=== PATIENT | female | born 1945 | race Two or more races ===

== ENCOUNTER 2023-10-28 09:41 | Inpatient (IN) | payer MEDICARE ==
[~2023-10-28] VITALS: Ht 157.5 cm; Wt 83.9 kg
[2023-10-28] MEDS ORDERED: MECLIZINE HCL 25 MG TABLET ONE (10:26)
[2023-10-28 10:33] LABS: BASOPHILS # (AUTO) 0.1 K/uL (0.0-0.2); BASOPHILS % (AUTO) 0.6 % (0.0-2.0); EOSINOPHILS # (AUTO) 0.6 K/uL (0.0-0.7); HEMATOCRIT 35 % (33-45); HEMOGLOBIN 11.8 g/dL (11.5-14.8); LYMPHOCYTES # (AUTO) 1.6 K/uL (0.8-4.8); LYMPHOCYTES % (AUTO) 20.5 % (20.0-44.0); MEAN CORPUSCULAR HEMOGLOBIN 29 PG (26.0-33.0); MEAN CORPUSCULAR HGB CONC 34 g/dl (31.0-36.0); MEAN CORPUSCULAR VOLUME 87 fL (82-100); MONOCYTES # (AUTO) 0.7 K/uL (0.1-1.30); NEUTROPHILS % (AUTO) 62.9 % (43.0-81.0); PLATELET COUNT (AUTO) 303 K/uL (150-450); RED BLOOD CELL COUNT(AUTO) 4.01 MIL/uL (4.0-5.2); RED CELL DISTRIBUTION WIDTH 13.6 % (11.5-15.0)
[2023-10-28] MEDS: MECLIZINE HCL 25 MG TABLET PO ONE (10:41)
[2023-10-28 10:44] LABS: SERUM AMMONIA 8 umol/L (11-32)
[2023-10-28 11:36] LABS: CALCIUM, SERUM 8.8 mg/dL (8.5-10.1); CARBON DIOXIDE 27 mmol/L (21-32); CHLORIDE 97 mmol/L (98-107); GLUCOSE 124 mg/dL (74-106); POTASSIUM 4.7 mmol/L (3.5-5.1); SODIUM SERUM 128 mmol/L (136-145); UREA NITROGEN, BLOOD 23 mg/dL (7-18)
[2023-10-28 11:48] LABS: ALANINE AMINOTRANSFERASE 22 U/L (12-78); ALKALINE PHOSPHATASE 101 U/L (46-116); ASPARTATE AMINOTRANSFERASE 15 U/L (15-37); BILIRUBIN,DIRECT 0.2 mg/dL (0.0-0.2); BILIRUBIN,TOTAL 0.5 mg/dL (0.2-1.0); NT-PRO BNP 391 pg/mL (0-125); TOTAL PROTEIN, SERUM 6.9 g/dL (6.4-8.2)
[2023-10-28 11:57] LABS: ALBUMIN 3.1 g/dL (3.4-5.0); LIPASE 76 U/L (16-77)
[2023-10-28] MEDS: IV NS 0.9% 1,000 ML BAG IV ONE (12:23)
[2023-10-28 12:52] LABS: APPEARANCE,URINE Slightly Cloudy (CLEAR); BILIRUBIN,URINE Negative (NEGATIVE); BLOOD, URINE Negative Ery/uL (NEGATIVE); COLOR,URINE YELLOW (YELLOW); KETONES,URINE Negative (NEGATIVE); LEUKOCYTE ESTERASE ,URINE Small (NEGATIVE); NITRITE, URINE Positive (NEGATIVE); PROTEIN,URINE Negative (NEGATIVE); UGLUCOSE Negative (NEGATIVE); UROBILINOGEN,URINE 0.2 EU/dL (0.2)
[2023-10-28 13:02] LABS: ADD URINE CULTURE YES; BACTERIA,URINE Many /HPF (None Seen); RBC,URINE 0-2 /HPF (0-2); WBC,URINE 21-50 /HPF (0-3)
[2023-10-28] MEDS ORDERED: ABAT125A SQ (14:47)
[2023-10-28] MEDS ORDERED: PRED-272 PO (14:47)
[2023-10-28] MEDS ORDERED: CITA20TA16 PO (14:47)
[2023-10-28] MEDS ORDERED: ALEN70TA80 PO (14:47)
[2023-10-28] MEDS ORDERED: HYDR200T4 PO (14:47)
[2023-10-28] MEDS ORDERED: LEVE500T20 PO (14:47)
[2023-10-28] MEDS ORDERED: ZOLP5TAB8 PO (14:47)
[2023-10-28] MEDS ORDERED: OMEP40CA21 PO (14:47)
[2023-10-28] MEDS ORDERED: HYDR12.55 PO (14:47)
[2023-10-28] MEDS ORDERED: LISI10TA29 PO (14:47)
[2023-10-28] MEDS ORDERED: ATEN50TA PO (14:47)
[2023-10-28] MEDS ORDERED: ATOR20TA PO (14:47)
[2023-10-28 15:00] VITALS: BP_SYST 138; BP_SYST 140; BP_SYST 141; BP_DIAS 57; BP_DIAS 60; BP_DIAS 62
[2023-10-28] MEDS ORDERED: ACETAMINOPHEN 325 MG TABLET PO PRN (15:00)
[2023-10-28] MEDS ORDERED: MAG HYDROX/AL HYDROX/SIMETH 30 ML UDC PO PRN (15:00)
[2023-10-28] MEDS ORDERED: MAGNESIUM HYDROXIDE 30 ML UDC PO PRN (15:00)
[2023-10-28] MEDS ORDERED: ONDANSETRON HCL/PF 4 MG/2 ML VIAL IVP PRN (15:00)
[2023-10-28] MEDS ORDERED: Z GUARD REMEDY 4 OZ OINT TP PRN (15:00)
[2023-10-28] MEDS ORDERED: HYDROCODONE/APAP 5/325MG TABLET PO PRN (15:00)
[2023-10-28] MEDS: IV 1/2NS 1000 ML 1,000 ML IV PRN (15:07)
[2023-10-28 16:00] VITALS: BP 139/60; TEMP 98.8; O2SAT 95
[2023-10-28] MEDS: ENOXAPARIN SODIUM 40 MG/0.4 ML DISP.SYRIN SQ SCH (16:39)
[2023-10-28 20:00] VITALS: BP 119/72; TEMP 97.8; O2SAT 97
[2023-10-29] VITALS (7 sets, daily range): BP systolic 131–150; BP diastolic 51–63; TEMP 97.7–98.4; O2SAT 92–97
[2023-10-29] MEDS: PANTOPRAZOLE 40 MG TABLET.DR PO SCH (07:57)
[2023-10-29 09:06] LABS: BASOPHILS % (AUTO) 0.3 % (0.0-2.0); EOSINOPHILS # (AUTO) 0.4 K/uL (0.0-0.7); EOSINOPHILS % (AUTO) 5.4 % (0.0-6.0); HEMATOCRIT 32 % (33-45); HEMOGLOBIN 10.6 g/dL (11.5-14.8); LYMPHOCYTES # (AUTO) 1.5 K/uL (0.8-4.8); LYMPHOCYTES % (AUTO) 20.6 % (20.0-44.0); MEAN CORPUSCULAR HEMOGLOBIN 29 PG (26.0-33.0); MEAN CORPUSCULAR HGB CONC 33 g/dl (31.0-36.0); MEAN CORPUSCULAR VOLUME 89 fL (82-100); MONOCYTES # (AUTO) 0.6 K/uL (0.1-1.30); MONOCYTES % (AUTO) 8.5 % (2.0-12.0); NEUTROPHILS # (AUTO) 4.7 K/uL (1.8-8.9); NEUTROPHILS % (AUTO) 65.2 % (43.0-81.0); PLATELET COUNT (AUTO) 249 K/uL (150-450); RED CELL DISTRIBUTION WIDTH 13.6 % (11.5-15.0); WHITE BLOOD COUNT (AUTO) 7.3 K/uL (4.3-11.0)
[2023-10-29 09:23] LABS: MAGNESIUM 1.4 mg/dL (1.8-2.4); POTASSIUM 4.5 mmol/L (3.5-5.1)
[2023-10-29 09:52] LABS: THYROID STIMULATING HORMONE 0.077 uIU/mL (0.358-3.74)
[2023-10-29] MEDS ORDERED: IV NS 0.9% 250 ML IV ONE (10:05)
[2023-10-29] MEDS ORDERED: IOHEXOL-350 100 ML VIAL IV ONE (10:05)
[2023-10-29] MEDS: LEVETIRACETAM (250 MG) 250 MG TABLET PO SCH (10:06)
[2023-10-29] MEDS: ASPIRIN EC 81 MG TABLET.DR PO SCH (10:06)
[2023-10-29] MEDS: ZOLPIDEM TARTRATE 5 MG TABLET PO PRN (22:52)
[2023-10-30] VITALS: BP 143/61; TEMP 98.4; O2SAT 96
[2023-10-30 04:00] VITALS: BP 131/57; TEMP 97.5; O2SAT 94
[2023-10-30 07:00] VITALS: BP 131/71; TEMP 97.7; O2SAT 100
[2023-10-30] MEDS ORDERED: IV NS 0.9% 1,000 ML IV PRN (09:00)
[2023-10-30 11:57] LABS: CALCIUM, SERUM 8.1 mg/dL (8.5-10.1); CREATININE 0.9 mg/dL (0.6-1.3); MAGNESIUM 1.4 mg/dL (1.8-2.4); PHOSPHORUS 3.7 mg/dL (2.5-4.9); POTASSIUM 4.1 mmol/L (3.5-5.1)
[2023-10-30 13:03] LABS: THYROID STIMULATING HORMONE 0.106 uIU/mL (0.358-3.74); URIC ACID 4.4 mg/dL (2.6-7.2)
== END 2023-10-30 12:45 | disposition home health service (06) | DRG 149 ==
LOC: ER 09:55 → TELE 12:59 → MED 10-30 09:31
DX: R42 Dizziness and giddiness (principal); E87.1 Hypo-osmolality and hyponatremia; E88.09 Other disorders of plasma-protein metabolism, not elsewhere classified; I10 Essential (primary) hypertension; I25.10 Atherosclerotic heart disease of native coronary artery without angina pectoris; E66.9 Obesity, unspecified; E86.1 Hypovolemia; Z90.49 Acquired absence of other specified parts of digestive tract; T42.6X5A Adverse effect of other antiepileptic and sedative-hypnotic drugs, initial encounter; Y92.009 Unspecified place in unspecified non-institutional (private) residence as the place of occurrence of the external cause; Z68.33 Body mass index [BMI] 33.0-33.9, adult; D32.0 Benign neoplasm of cerebral meninges; R56.9 Unspecified convulsions; Z95.5 Presence of coronary angioplasty implant and graft
CPT/HCPCS: 36415; 70450-TC; 70496-TC; 70498-TC; 71045-TC; 80048-TC; 80061-TC; 80076-TC; 81001; 82140-TC; 82533; 82962-TC; 83690-TC; 83735-TC; 83880; 84100-TC; 84443-TC; 84484-TC; 84550-TC; 85025-TC; 87086-TC; 93307-TC; 97110-TC; 97116-TC; 97530-TC; A4223; G0378; J1650; J3490; J7030; J7050; J8597; Q9967

== ENCOUNTER 2023-11-24 14:50 | Inpatient (IN) | payer MEDICARE ==
[~2023-11-24] VITALS: Ht 157.5 cm; Wt 100.2 kg
[~2023-11-24 14:50] MED LIST: ABAT125A SQ; ALEN70TA80 PO; ATEN50TA PO; ATOR20TA PO; CITA20TA16 PO; HYDR12.55 PO; HYDR200T4 PO; LEVE500T20 PO; LISI10TA29 PO; OMEP40CA21 PO; PRED-272 PO; ZOLP5TAB8 PO
[2023-11-24 15:15] LABS: BASOPHILS # (AUTO) 0.1 K/uL (0.0-0.2); BASOPHILS % (AUTO) 1.2 % (0.0-2.0); EOSINOPHILS # (AUTO) 0.4 K/uL (0.0-0.7); EOSINOPHILS % (AUTO) 5.2 % (0.0-6.0); HEMATOCRIT 35 % (33-45); HEMOGLOBIN 11.4 g/dL (11.5-14.8); LYMPHOCYTES # (AUTO) 2.8 K/uL (0.8-4.8); LYMPHOCYTES % (AUTO) 32.8 % (20.0-44.0); MEAN CORPUSCULAR HEMOGLOBIN 29 PG (26.0-33.0); MEAN CORPUSCULAR HGB CONC 33 g/dl (31.0-36.0); MEAN CORPUSCULAR VOLUME 88 fL (82-100); MONOCYTES # (AUTO) 0.8 K/uL (0.1-1.30); MONOCYTES % (AUTO) 9.8 % (2.0-12.0); NEUTROPHILS # (AUTO) 4.3 K/uL (1.8-8.9); PLATELET COUNT (AUTO) 300 K/uL (150-450); RED BLOOD CELL COUNT(AUTO) 3.93 MIL/uL (4.0-5.2); RED CELL DISTRIBUTION WIDTH 13.3 % (11.5-15.0); WHITE BLOOD COUNT (AUTO) 8.5 K/uL (4.3-11.0)
[2023-11-24 15:23] LABS: CALCIUM, SERUM 9.3 mg/dL (8.5-10.1); CARBON DIOXIDE 26 mmol/L (21-32); CHLORIDE 101 mmol/L (98-107); CREATININE 1.2 mg/dL (0.6-1.3); GLUCOSE 110 mg/dL (74-106); POTASSIUM 4.3 mmol/L (3.5-5.1); SODIUM SERUM 134 mmol/L (136-145); UREA NITROGEN, BLOOD 37 mg/dL (7-18)
[2023-11-24] MEDS ORDERED: ONDANSETRON HCL/PF 4 MG/2 ML VIAL ONE (16:26)
[2023-11-24] MEDS ORDERED: MORPHINE SULFATE INJ 4 MG/ML DISP.SYRIN ONE (16:26)
[2023-11-24] MEDS ORDERED: ONDANSETRON HCL/PF 4 MG/2 ML VIAL IVP PRN (16:30)
[2023-11-24] MEDS ORDERED: MAG HYDROX/AL HYDROX/SIMETH 30 ML UDC PO PRN (16:30)
[2023-11-24] MEDS ORDERED: Z GUARD REMEDY 4 OZ OINT TP PRN (16:30)
[2023-11-24] MEDS ORDERED: MAGNESIUM HYDROXIDE 30 ML UDC PO PRN (16:30)
[2023-11-24] MEDS ORDERED: BRIV50TA PO (16:39)
[2023-11-24] MEDS: MORPHINE SULFATE INJ 2 MG/ML DISP.SYRIN IV ONE (16:39)
[2023-11-24] MEDS: ONDANSETRON HCL/PF 4 MG/2 ML VIAL IV ONE (16:40)
[2023-11-24 18:00] VITALS: BP 143/75; TEMP 98.4; O2SAT 94
[2023-11-24] MEDS: LEVETIRACETAM (250 MG) 250 MG TABLET PO SCH (19:07)
[2023-11-24] MEDS: CEFTRIAXONE 1 G in IV D5W 50 ML IV SCH (19:08)
[2023-11-24] MEDS: HYDROCODONE/APAP 5/325MG TABLET PO PRN (21:20)
[2023-11-24] MEDS: BRIVIACT 50 MG PO SCH (21:21)
[2023-11-24 22:00] VITALS: BP 138/84; TEMP 98.4; O2SAT 96
[2023-11-24] MEDS: ZOLPIDEM TARTRATE 5 MG TABLET PO PRN (23:25)
[2023-11-25 02:00] VITALS: BP 126/78; TEMP 98.4; O2SAT 94
[2023-11-25 06:00] VITALS: BP 116/51; TEMP 98.3; O2SAT 93
[2023-11-25 07:00] LABS: BASOPHILS % (AUTO) 0.5 % (0.0-2.0); EOSINOPHILS # (AUTO) 0.5 K/uL (0.0-0.7); EOSINOPHILS % (AUTO) 4.7 % (0.0-6.0); HEMATOCRIT 32 % (33-45); HEMOGLOBIN 10.8 g/dL (11.5-14.8); LYMPHOCYTES # (AUTO) 2.5 K/uL (0.8-4.8); LYMPHOCYTES % (AUTO) 25.8 % (20.0-44.0); MEAN CORPUSCULAR HEMOGLOBIN 30 PG (26.0-33.0); MEAN CORPUSCULAR HGB CONC 34 g/dl (31.0-36.0); MEAN CORPUSCULAR VOLUME 89 fL (82-100); MONOCYTES # (AUTO) 1.1 K/uL (0.1-1.30); MONOCYTES % (AUTO) 11.4 % (2.0-12.0); NEUTROPHILS # (AUTO) 5.6 K/uL (1.8-8.9); NEUTROPHILS % (AUTO) 57.6 % (43.0-81.0); PLATELET COUNT (AUTO) 251 K/uL (150-450); RED BLOOD CELL COUNT(AUTO) 3.61 MIL/uL (4.0-5.2); RED CELL DISTRIBUTION WIDTH 13.1 % (11.5-15.0); WHITE BLOOD COUNT (AUTO) 9.7 K/uL (4.3-11.0)
[2023-11-25 07:12] LABS: CARBON DIOXIDE 24 mmol/L (21-32); CHLORIDE 102 mmol/L (98-107); CREATININE 1.8 mg/dL (0.6-1.3); GLUCOSE 104 mg/dL (74-106); MAGNESIUM 1.9 mg/dL (1.8-2.4); PHOSPHORUS 6.3 mg/dL (2.5-4.9); SODIUM SERUM 136 mmol/L (136-145); UREA NITROGEN, BLOOD 41 mg/dL (7-18)
[2023-11-25 07:16] LABS: CHOLESTEROL 115 mg/dL (<200); HDL CHOLESTEROL 56 mg/dL (40-60); LDL 46 mg/dL (0-99); TRIGLYCERIDES 69 mg/dL (30-150)
[2023-11-25 08:00] VITALS: BP_SYST 114; BP_SYST 123; BP_DIAS 51; BP_DIAS 64; TEMP 98.4; O2SAT 97; O2SAT 98
[2023-11-25] MEDS: PANTOPRAZOLE 40 MG TABLET.DR PO SCH (08:09)
[2023-11-25] MEDS ORDERED: Medication Not On Formulary EA (Omeprazole 40 MG) PO PRN (10:00)
[2023-11-25] MEDS: HYDROXYCHLOROQUINE 200 MG TABLET PO SCH (10:09)
[2023-11-25] MEDS: ATENOLOL 50 MG TABLET PO SCH (10:09)
[2023-11-25] MEDS: CITALOPRAM HYDROBROMIDE 20 MG TABLET PO SCH (10:09)
[2023-11-25] MEDS: IV NS 0.9% 1,000 ML IV ONE (11:38)
[2023-11-25 12:00] VITALS: BP 100/53; TEMP 98.3; O2SAT 98
[2023-11-25] MEDS ORDERED: HYDROCORTISONE 1% CREAM 28.35 GM TUBE TP PRN (14:30)
[2023-11-25] MEDS: dexaMETHasone SOD PHOSPHATE 4 MG/ML VIAL IV SCH (15:05)
[2023-11-25 16:00] VITALS: BP 100/54; TEMP 98.8; O2SAT 98
[2023-11-25] MEDS: LORATADINE 10 MG TABLET PO SCH (16:28)
[2023-11-25] MEDS ORDERED: LORAZEPAM 1 MG TABLET PO PRN (16:30)
[2023-11-25 20:00] VITALS: BP 110/58; TEMP 97.6; O2SAT 98
[2023-11-26] VITALS: BP 112/55; TEMP 97.5; O2SAT 98
[2023-11-26 04:00] VITALS: BP 127/65; TEMP 97.3; O2SAT 98
[2023-11-26 06:57] LABS: BASOPHILS % (AUTO) 0.1 % (0.0-2.0); EOSINOPHILS % (AUTO) 0.1 % (0.0-6.0); HEMATOCRIT 31 % (33-45); HEMOGLOBIN 10.4 g/dL (11.5-14.8); LYMPHOCYTES # (AUTO) 1.5 K/uL (0.8-4.8); LYMPHOCYTES % (AUTO) 20.9 % (20.0-44.0); MEAN CORPUSCULAR HEMOGLOBIN 30 PG (26.0-33.0); MEAN CORPUSCULAR HGB CONC 34 g/dl (31.0-36.0); MEAN CORPUSCULAR VOLUME 88 fL (82-100); MONOCYTES # (AUTO) 0.3 K/uL (0.1-1.30); MONOCYTES % (AUTO) 4.9 % (2.0-12.0); NEUTROPHILS # (AUTO) 5.3 K/uL (1.8-8.9); PLATELET COUNT (AUTO) 222 K/uL (150-450); RED BLOOD CELL COUNT(AUTO) 3.47 MIL/uL (4.0-5.2); RED CELL DISTRIBUTION WIDTH 13.1 % (11.5-15.0); WHITE BLOOD COUNT (AUTO) 7.1 K/uL (4.3-11.0)
[2023-11-26 07:09] LABS: CREATINE KINASE, TOTAL 48 U/L (26-192)
[2023-11-26 07:10] LABS: ALANINE AMINOTRANSFERASE 24 U/L (12-78); ALBUMIN 2.5 g/dL (3.4-5.0); ALKALINE PHOSPHATASE 91 U/L (46-116); ASPARTATE AMINOTRANSFERASE 16 U/L (15-37); BILIRUBIN,TOTAL 0.3 mg/dL (0.2-1.0); CALCIUM, SERUM 8.7 mg/dL (8.5-10.1); CARBON DIOXIDE 23 mmol/L (21-32); CHLORIDE 103 mmol/L (98-107); CREATININE 1.7 mg/dL (0.6-1.3); GLUCOSE 116 mg/dL (74-106); MAGNESIUM 1.8 mg/dL (1.8-2.4); POTASSIUM 5.2 mmol/L (3.5-5.1); SODIUM SERUM 135 mmol/L (136-145); TOTAL PROTEIN, SERUM 6.6 g/dL (6.4-8.2); UREA NITROGEN, BLOOD 51 mg/dL (7-18)
[2023-11-26 08:00] VITALS: BP 133/52; TEMP 97.7; O2SAT 93
[2023-11-26] MEDS: ATORVASTATIN 10 MG TABLET PO SCH (08:33)
[2023-11-26] MEDS ORDERED: FAMOTIDINE (20 MG) 20 MG TABLET PO SCH (09:00)
[2023-11-26] MEDS: IV NS 0.9% 1,000 ML IV SCH (09:05)
[2023-11-26 12:00] VITALS: BP 145/82; TEMP 98.6; O2SAT 99
[2023-11-26 12:48] LABS: ADD URINE CULTURE YES; APPEARANCE,URINE CLEAR (CLEAR); BACTERIA,URINE Rare /HPF (None Seen); BILIRUBIN,URINE NEGATIVE (NEGATIVE); BLOOD, URINE NEGATIVE Ery/uL (NEGATIVE); COLOR,URINE YELLOW (YELLOW); KETONES,URINE NEGATIVE (NEGATIVE); LEUKOCYTE ESTERASE ,URINE 2+ (NEGATIVE); NITRITE, URINE NEGATIVE (NEGATIVE); PH,URINE 5.5 (5.0-8.0); PROTEIN,URINE NEGATIVE (NEGATIVE); RBC,URINE 0-2 /HPF (0-2); SQUAMOUS EPITHELIAL CELL,UR Rare /HPF (None Seen); UGLUCOSE NEGATIVE (NEGATIVE); UROBILINOGEN,URINE 0.2 EU/dL (0.2)
[2023-11-26 12:50] LABS: EOSINOPHIL,URINE None Seen
[2023-11-26 12:57] LABS: CREATININE, URINE 85.5 MG/DL (30.0-125.0); URINE TOTAL PROTEIN 30.3 mg/dL (0-11.9)
[2023-11-26 14:38] LABS: CHLORIDE 103 mmol/L (98-107); POTASSIUM 5.3 mmol/L (3.5-5.1); SODIUM SERUM 134 mmol/L (136-145)
[2023-11-26 15:15] LABS: CALCIUM, SERUM 8.8 mg/dL (8.5-10.1); CARBON DIOXIDE 21 mmol/L (21-32); CREATININE 1.5 mg/dL (0.6-1.3); GLUCOSE 173 mg/dL (74-106); UREA NITROGEN, BLOOD 47 mg/dL (7-18)
[2023-11-26 16:00] VITALS: BP 132/58; TEMP 99.1; O2SAT 97
[2023-11-26] MEDS: ASPIRIN 81 MG TAB.CHEW PO SCH (16:16)
[2023-11-26] MEDS: ACETAMINOPHEN 325 MG TABLET PO PRN (16:16)
[2023-11-26] MEDS: SODIUM POLYSTYRENE SULFONATE 15 G/60 ML BOTTLE PO ONE (17:18)
[2023-11-26 20:00] VITALS: BP 134/54; TEMP 98.2; O2SAT 97
[2023-11-26 20:03] LABS: CALCIUM, SERUM 8.3 mg/dL (8.5-10.1); CARBON DIOXIDE 23 mmol/L (21-32); CHLORIDE 103 mmol/L (98-107); CREATININE 1.4 mg/dL (0.6-1.3); GLUCOSE 155 mg/dL (74-106); POTASSIUM 5.2 mmol/L (3.5-5.1); SODIUM SERUM 133 mmol/L (136-145); UREA NITROGEN, BLOOD 51 mg/dL (7-18)
[2023-11-27] VITALS: BP 146/72; TEMP 97.9; O2SAT 98
[2023-11-27] MEDS: diphenhydrAMINE HCL 25 MG CAPSULE PO PRN (02:22)
[2023-11-27 04:00] VITALS: BP 152/61; TEMP 97.7; O2SAT 98
[2023-11-27 08:00] VITALS: BP 134/55; TEMP 97.9; O2SAT 98
[2023-11-27 08:11] LABS: PTH, INTACT 76 pg/mL (15-65)
[2023-11-27 08:22] VITALS: BP 134/55
[2023-11-27 08:24] VITALS: O2SAT 98
[2023-11-27] MEDS ORDERED: GABA-532 PO (15:14)
[2023-11-30 07:08] LABS: *SPE A/G RATIO 0.9 (0.7-1.7); *SPE ALBUMIN 2.9 g/dL (2.9-4.4); *SPE ALPHA-1-GLOBULIN 0.3 g/dL (0.0-0.4); *SPE ALPHA-2-GLOBULIN 0.9 g/dL (0.4-1.0); *SPE GLOBULIN, TOTAL 3.4 g/dL (2.2-3.9); *SPE M-SPIKE Not Observed g/dL (Not Observed); *SPE PROTEIN TOTAL 6.3 g/dL (6.0-8.5); *SPEGAMMA GLOBULIN 1.2 g/dL (0.4-1.8)
== END 2023-11-27 17:08 | disposition home or self-care (01) | DRG 205 ==
LOC: ER 14:53 → TELE1 17:02 → MEDSG1 11-27 12:00
PROVIDERS: ADMIT Nurse Practitioner Acute Care; ATTEND Nurse Practitioner Acute Care
DX: M94.0 Chondrocostal junction syndrome [Tietze] (principal); N17.0 Acute kidney failure with tubular necrosis; E87.1 Hypo-osmolality and hyponatremia; Z68.41 Body mass index [BMI] 40.0-44.9, adult; M50.023 Cervical disc disorder at C6-C7 level with myelopathy; I25.10 Atherosclerotic heart disease of native coronary artery without angina pectoris; M19.90 Unspecified osteoarthritis, unspecified site; D32.0 Benign neoplasm of cerebral meninges; I12.9 Hypertensive chronic kidney disease with stage 1 through stage 4 chronic kidney disease, or unspecified chronic kidney disease; N18.9 Chronic kidney disease, unspecified; D64.9 Anemia, unspecified; E66.9 Obesity, unspecified; E78.5 Hyperlipidemia, unspecified; E87.5 Hyperkalemia; Z90.49 Acquired absence of other specified parts of digestive tract; Z95.5 Presence of coronary angioplasty implant and graft; M48.02 Spinal stenosis, cervical region; F32.A Depression, unspecified; M89.8X9 Other specified disorders of bone, unspecified site; M50.123 Cervical disc disorder at C6-C7 level with radiculopathy; M47.22 Other spondylosis with radiculopathy, cervical region; Z96.651 Presence of right artificial knee joint
CPT/HCPCS: 36415; 70450-TC; 71045-TC; 72141-TC; 76770-TC; 80048-TC; 80053-TC; 80061-TC; 81001; 82550-TC; 82570-TC; 83735-TC; 83970; 84100-TC; 84155; 84165; 84300-TC; 84480; 84484-TC; 85025-TC; 87081-TC; 94799-TC; 97112-TC; 97116-TC; 97530-TC; A4223; A6253; G0378; J0696; J1100; J2270; J2405; J7030; J7050; J7060; Q0163